=== PATIENT | male | born 1975 | race Caucasian/White ===

== ENCOUNTER → 2020-04-21 15:06 | Outpatient (CLI) | payer BC, SELFPAY ==
[2020-04-23 10:30] LABS: Covid-19 Nasal PCR Sendout P&C Positive
== END ==
PROVIDERS: PCP Family Medicine; Visit Provider Family Medicine
DX: Z20.828 Contact with and (suspected) exposure to other viral communicable diseases (principal); U07.1 COVID-19
CPT/HCPCS: U0004

== ENCOUNTER → 2020-05-01 15:40 | Outpatient (CLI) | payer BC, SELFPAY | PROVIDERS: PCP Family Medicine; Visit Provider Nurse Practitioner Family | DX: U07.1 COVID-19 (principal) | CPT/HCPCS: U0003 ==

== ENCOUNTER 2020-09-06 14:30 | Emergency (ER) | payer BC, SELFPAY ==
[2020-09-06 15:05] VITALS: BP 134/97; PULSE 100; RESP 18; TEMP 37.1; O2SAT 98; BMI 25.1
[2020-09-06 15:38] LABS: UTC Influenza A Antigen Negative (Negative); UTC Influenza B Antigen Negative (Negative); UTC Strep Screen (Rapid) Negative (Negative)
--- NOTE | 2020-09-06 15:49 | HMH.EDUTC ---
[facility] [place] Impression: Viral syndrome Disposition: Home, Self-Care Condition on Discharge: Good Instructions: DI for Viral Upper Respiratory Infection -- Adult, DI for Viral Syndrome Additional Instructions: *Monitor Temp, Over the counter Motrin or Tylenol as directed/as needed Tylenol every 4 hours and Motrin every 6 hours (as long as your family doctor has told you that you can take it) for fever or pain. and straight to ER if unable to lower temp less than 101.0 after medication given *Warm salt water gargles may help to soothe the throat *Throat Lozenges *Warm fluids like tea with honey may help to soothe the throat *Sleep elevated *Humidifier/Vaporizer *Flonase 2 sprays in each nostril daily but be aware that it may take 2-3 days before you notice improvement Your throat swab was sent for culture. Those results are typically sent to your primary care. Be sure to follow up in 2-3 days with your family doctor/primary care physician if no improvement so they can review those result and treat if necessary. If you don?t have a primary care doctor, I recommend you get one but in the mean time, you will have to return to a walk in clinic Follow up IMMEDIATELY for new or worsening symptoms or no Noticeable improvement over the next 48-72 hours. 911 for difficulty breathing or swallowing You were tested for today for COVID19 your test result should be back in the next 24-48 hours, you may call to the [facility] to see if your test results are back in the next 48 hours [phone] [facility] hours are 9am-9pm You was given a handout with instructions for Self Quarantine and Self isolation for while you wait on test results and what to do if they are positive If you are positive the Health Dept will be contacting you also Prescriptions: Fluticasone Propionate [Flonase 50mcg nasal spray 16gm] 1 spr NS DAILY #1 bottle Transmission Status: Pending to [facility] # Benzonatate [Tessalon Perle 100mg Cap*] 100 mg PO TID PRN #15 cap PRN Reason: Cough Transmission Status: Pending to [facility] # Referrals: Yovany Zamora MD [Primary Care Provider] - As needed Forms: Work/School Release Time of Disposition: 15:59 Medical Decision Making - Tony Inquiry Pt receiving controlled substance: No Tony was queried for this patient: No Vital Signs: 09/06/20 15:05 Temperature 98.8 F Temperature Source Oral Pulse Rate [Left Brachial] 100 H Respiratory Rate 18 Blood Pressure [Left Arm] 134/97 H Blood Pressure Mean [Left Arm] 109 Blood Pressure Source [Left Arm] Automatic Cuff Blood Pressure Position [Left Arm] Sitting 02 Sat by Pulse Oximetry 98 Oxygen Delivery Method Room Air - Lab Data Lab results reviewed: Yes: I reviewed the patient's lab results. Lab Results 09/06/20 15:22: Influenza Type A Ag Negative, Influenza Type B Ag Negative 09/06/20 15:22: Strep Scn Rapid Clinic Negative Orders (Tests/Meds): ORDERS Category Date Time Status Covid-19 Nasal PCR ([facility]) Routine Lab 09/06/20 15:40 Received Strep Screen Confirmation Stat Micro 09/06/20 15:22 Received [facility] UTC HPI - General Stated complaint: possoble flu Time Seen by Provider: 09/06/20 15:49 Mode of Arrival: Ambulatory Source of Information: Patient Limitations: No Limitations Description of Symptoms (Recalled from Triage Doc. by RN): PATIENT C/O SORE THROAT, CONGESTION, BODY ACHES, COUGH, AND FEVER SINCE MONDAY HEENT Symptoms (Recalled from RN notes): Yes Resp Symptoms (Recalled from RN notes): Yes Skin Symptoms (Recalled from RN notes): No MS Symptoms (Recalled from RN notes): No Functional Status (Recalled from RN notes): WNL - History of Present Illness Provider Complaint: Patient states that he started feeling bad on Monday with sore throat and body aches States that since then he feels like he has the flu States that he started having fever, chills, feeling achy all over and cough State that he is not sure if he has
[2020-09-06 16:02] VITALS: BP 134/97; PULSE 100; RESP 18; TEMP 37.1; O2SAT 98
== END 2020-09-06 16:04 | disposition home or self-care (01) ==
PROVIDERS: Emergency Provider Nurse Practitioner; PCP Family Medicine
DX: B34.9 Viral infection, unspecified (principal); Z20.822 Contact with and (suspected) exposure to COVID-19
CPT/HCPCS: 87804; 87880; 99202; G0463; U0003

== ENCOUNTER 2020-10-11 12:43 | Emergency (ER) | payer BC, SELFPAY ==
[2020-10-11 12:48] VITALS: BP 155/101; PULSE 86; RESP 16; TEMP 37.3; O2SAT 99; BMI 24.7
--- NOTE | 2020-10-11 12:49 | XR_ITS ---
PROCEDURE INFORMATION: Exam: XR Right Foot Exam date and time: 10/11/2020 12:49 PM Age: 45 years old Clinical indication: Injury or trauma; Blunt trauma; Injury details: Patient stepped into a hole while walking, right lateral foot pain. TECHNIQUE: Imaging protocol: XR Right foot. Views: 3 or more views. COMPARISON: No relevant prior studies available. FINDINGS: Bones/joints: No acute bony injury in the visualized right foot. Anatomic alignment. Soft tissues: Multiple well-circumscribed ovoid radiopaque densities about the lateral aspect of the tarsus. IMPRESSION: Multiple well-circumscribed ovoid radiopaque densities about the lateral aspect of the tarsus.
--- NOTE | 2020-10-11 12:51 | XR_ITS ---
PROCEDURE INFORMATION: Exam: XR Right Ankle Exam date and time: 10/11/2020 12:51 PM Age: 45 years old Clinical indication: Injury or trauma; Other: Patient stepped into a hole while walking. ; Blunt trauma; Injury details: Patient stepped into a hole while walking, right lateral ankle pain. TECHNIQUE: Imaging protocol: XR Right ankle. Views: 3 or more views. COMPARISON: No relevant prior studies available. FINDINGS: Bones/joints: No acute bony injury or malalignment in the right ankle mortise. Soft tissues: No significant soft tissue swelling. Well-circumscribed radiopaque densities in the soft tissues lateral to the tarsus. IMPRESSION: No acute bony injury or malalignment in the right ankle mortise.
--- NOTE | 2020-10-11 13:15 | HMH.EDUTC ---
[facility] – [place], [place] Disposition Clinical Impression: Right ankle sprain Qualifiers: Encounter type: initial encounter Involved ligament of ankle: unspecified ligament Qualified Code(s): S93.401A - Sprain of unspecified ligament of right ankle, initial encounter Disposition: Home, Self-Care Condition on Discharge: Good Instructions: DI for Ankle Sprain Additional Instructions: Weightbearing as tolerated rest Ice with cold pack for 20 minutes remove may repeat for comfort every hour leave spint/walking boot Elevate with ankle above your heart as much as possible to help reduce swelling and therefore pain Ibuprofen every 6 hours as needed for pain or inflammation. If needs something more you can take Tylenol every 4 hours as needed as long as her primary care has told he was okayed for you to take both. If improving any do not need to follow-up you can bring begin exercising 2-3 weeks after injury. Follow-up immediately if new or worsening symptoms or no noticeable improvement over the next 3-[address] yan office in am for appointment Referrals: Yovany Zamora MD [Primary Care Provider] - Dorothy Yan DPM [Staff Physician] - Forms: Work/School Release Time of Disposition: 13:44 Medical Decision Making - Tony Inquiry Pt receiving controlled substance: No Vital Signs: 10/11/20 12:48 Temperature 99.1 F Temperature Source Oral Pulse Rate [Right] 86 Respiratory Rate 16 Blood Pressure [Right Arm] 155/101 H Blood Pressure Mean [Right Arm] 119 02 Sat by Pulse Oximetry 99 Orders (Tests/Meds): ORDERS Category Date Time Status Ankle XR -Right minimum 3 Views [XR ankle RT min 3V] Exams 10/11/20 12:51 Taken Stat Foot XR right minimum 3 views [XR foot RT min 3V] Stat Exams 10/11/20 12:49 Taken [facility] – [place], [place] HPI - General Chief complaint: Urgent Treatment Center Stated complaint: ao rt foot pain 10/11 Time Seen by Provider: 10/11/20 13:15 Mode of Arrival: Ambulatory Source of Information: Patient Limitations: No Limitations Description of Symptoms (Recalled from Triage Doc. by RN): pt tripped in a hole this am and is now having R foot and ankle pain. pain is 9/10 and throbbing. HEENT Symptoms (Recalled from RN notes): No Resp Symptoms (Recalled from RN notes): No Skin Symptoms (Recalled from RN notes): No MS Symptoms (Recalled from RN notes): Yes (L outer foot pain and ankle) Functional Status (Recalled from RN notes): na - History of Present Illness Provider Complaint: 45 yr old male presnts for rt ankle and foot pain.pt tripped in a hole this am and is now having R foot and ankle pain and states he felt a pop. pain is 9/10 and throbbing. - Related Data Home Medications Medication Instructions Recorded Confirmed lisinopriL [Lisinopril 10mg Tab] 10 mg PO DAILY 05/26/19 05/26/19 Previous Rx's Medication Instructions Recorded Benzonatate [Tessalon Perle 100mg 100 mg PO TID PRN #15 cap 09/06/20 Cap*] Fluticasone Propionate [Flonase 1 spr NS DAILY #1 bottle 09/06/20 50mcg nasal spray 16gm] Allergies Allergy/AdvReac Type Severity Reaction Status Date / Time No Known Allergies Allergy Verified 09/06/20 15:27 - Worker's Comp Is this a Worker's Comp case?: No [facility] History - Hepatitis A Screen Drug use history?: No High risk sexual behaviors?: No History of sexually transmitted infection?: No Currently employed?: No Childcare worker?: No Do you have indoor plumbing?: Yes Do you have electricity?: Yes Attestation statement:: This patient has been screened for Hepatitis A risk factors. I have reviewed the patient's past medical history: Yes - Social History Smoking Status: Never smoker Tobacco Type: smokeless tobacco # Packs/Day (cigarettes): 0 Alcohol Intake: never Occupational Status: other ROS Obtained: Yes Systems reviewed as appropriate & no additional complaints - Constitutional Constitutional: Reports system reviewed and no additional complaints, except as Emmy presley fe
[2020-10-11 13:52] VITALS: BP 000/00; PULSE 89; RESP 16; TEMP 37.2
== END 2020-10-11 13:54 | disposition home or self-care (01) ==
PROVIDERS: Emergency Provider Nurse Practitioner Family; PCP Family Medicine
DX: S93.401A Sprain of unspecified ligament of right ankle, initial encounter (principal); W17.2XXA Fall into hole, initial encounter; Y92.89 Other specified places as the place of occurrence of the external cause; I10 Essential (primary) hypertension
CPT/HCPCS: 29515; 73610; 73630; 99202; G0463

== ENCOUNTER 2020-11-05 13:30 | Outpatient (RCR) | payer BC, SELFPAY | END 2020-11-05 13:35 | disposition home or self-care (01) | LOC: PT 13:30 | PROVIDERS: PCP Family Medicine; Visit Provider Orthopaedic Surgery | DX: S93.401A Sprain of unspecified ligament of right ankle, initial encounter (principal); M79.671 Pain in right foot | CPT/HCPCS: 97010; 97014; 97110; 97140; 97163; G0283 ==

== ENCOUNTER 2021-01-28 17:30 | Outpatient (RCR) | payer BC, SELFPAY | END 2021-01-28 17:35 | disposition home or self-care (01) | LOC: PT 17:30 | PROVIDERS: Visit Provider Podiatrist Foot & Ankle Surgery | DX: M76.71 Peroneal tendinitis, right leg (principal) | CPT/HCPCS: 97014; 97033; 97110; 97140; 97163; 97760; G0283 ==

== ENCOUNTER 2021-01-30 10:35 | Emergency (ER) | payer BC, SELFPAY ==
[2021-01-30 10:44] VITALS: BP 114/90; PULSE 104; RESP 16; TEMP 36.9; O2SAT 98; BMI 26.1
--- NOTE | 2021-01-30 10:59 | HMH.EDUTC ---
[facility] [place] Clinical Impression: Exposure to COVID-19 virus Disposition: Home, Self-Care Condition on Discharge: Good Instructions: Preventing the Spread of Coronavirus Discharge Instructions Additional Instructions: Drink plenty of fluids. Take tylenol for pain or fever. Return if you begin to have difficulty breathing. Follow up with your regular doctor. GO TO THE ER FOR ANY WORSENING SYMPTOMS Quarantine until you know the results of your covid-19 test. If it is positive, the health department should call you and give you further instructions about your length of Quarantine and other things. Notify your school or workplace of your results and follow their instructions regarding return to work/school. Referrals: Yovany Zamora MD [Primary Care Provider] - Time of Disposition: 11:09 Medical Decision Making - Medical Records Medical records reviewed: No: I reviewed the patient's medical records. - Tony Inquiry Pt receiving controlled substance: No Vital Signs: 01/30/21 10:44 01/30/21 11:12 Temperature 98.4 F 98.4 F Temperature Source Oral Pulse Rate 104 H Pulse Rate [Left] 104 H Respiratory Rate 16 16 Blood Pressure 114/90 Blood Pressure [Right Arm] 114/90 Blood Pressure Mean [Right Arm] 98 02 Sat by Pulse Oximetry 98 [facility] [place] HPI - General Stated complaint: covid test, exposure Time Seen by Provider: 01/30/21 11:06 Mode of Arrival: Ambulatory Source of Information: Patient Limitations: No Limitations Description of Symptoms (Recalled from Triage Doc. by RN): EXPOSED TO COVID 01/25. ASYMPTOMATIC. HEENT Symptoms (Recalled from RN notes): No Resp Symptoms (Recalled from RN notes): No Skin Symptoms (Recalled from RN notes): No MS Symptoms (Recalled from RN notes): No Functional Status (Recalled from RN notes): NA - History of Present Illness Provider Complaint: He was exposed to covid-19 last monday by being around his daughter when she had it. He has not been vaccinated. He denies any symptoms or complaints. He needs a test so he can go back to work. - Related Data Home Medications Medication Instructions Recorded Confirmed lisinopriL [Lisinopril 10mg Tab] 10 mg PO DAILY 05/26/19 05/26/19 Previous Rx's Medication Instructions Recorded Benzonatate [Tessalon Perle 100mg 100 mg PO TID PRN #15 cap 09/06/20 Cap*] Fluticasone Propionate [Flonase 1 spr NS DAILY #1 bottle 09/06/20 50mcg nasal spray 16gm] Allergies Allergy/AdvReac Type Severity Reaction Status Date / Time No Known Allergies Allergy Verified 09/06/20 15:27 - Worker's Comp Is this a Worker's Comp case?: No [facility] History - Hepatitis A Screen Drug use history?: No High risk sexual behaviors?: No History of sexually transmitted infection?: No Currently employed?: No Childcare worker?: No Do you have indoor plumbing?: Yes Do you have electricity?: Yes Attestation statement:: This patient has been screened for Hepatitis A risk factors. I have reviewed the patient's past medical history: Yes - Social History Smoking Status: Never smoker Tobacco Type: smokeless tobacco # Packs/Day (cigarettes): 0 Alcohol Intake: never Occupational Status: other ROS Obtained: Yes All systems reviewed & no additional complaints - Constitutional Constitutional: Denies chills, Denies fever(s), Denies poor appetite, Denies malaise - Eyes Eyes: Denies eye discharge, Denies itchy eyes - ENT Ears, Nose, Mouth, and Throat: Denies dizziness, Denies otalgia, Denies sore throat - Cardiovascular Cardiovascular: Denies chest pain - Respiratory Respiratory: Denies chest congestion, Denies cough, Denies dyspnea, Denies stridor, Denies wheezing - Gastrointestinal Gastrointestingal: Denies: abdominal pain, diarrhea, nausea, vomiting - Integumentary/Breasts Skin/Breast: Denies rash Physical Exam - General General appearance: alert, in no apparent distress - Head Head exam: atraumatic,
[2021-01-30 11:12] VITALS: BP 114/90; PULSE 104; RESP 16; TEMP 36.9
== END 2021-01-30 11:14 | disposition home or self-care (01) ==
PROVIDERS: Emergency Provider Nurse Practitioner Family; PCP Family Medicine
DX: Z20.822 Contact with and (suspected) exposure to COVID-19 (principal)
CPT/HCPCS: 99202; C9803; G0463; U0003; U0005

== ENCOUNTER 2021-05-25 14:10 | Emergency (ER) | payer BC, SELFPAY ==
[2021-05-25 14:26] VITALS: BP 161/109; PULSE 98; RESP 18; TEMP 37.3; O2SAT 97; BMI 26.9
--- NOTE | 2021-05-25 14:28 | ECG_ITS ---
APPROVED REPORT Exam: Resting ECG HR:85 bpm ECG Measurements Heart Rate 85 AXES CA 136 P 36 QRSd 91 QRS 59 QT 338 T 8 QTc 380 Conclusion SINUS RHYTHM NONSPECIFIC T-WAVE ABNORMALITY BORDERLINE ECG UNCONFIRMED REPORT Electronically signed by : Contreras Perez MD 05/25/2021 16:24:31
--- NOTE | 2021-05-25 14:32 | XR_ITS ---
FINAL REPORT CLINICAL HISTORY: chest tightness, SOA, COUGH, POSITIVE FOR COVID AT HOME TEST COMPARISON: October 13, 2017 FINDINGS: SINGLE VIEW CHEST. The heart is normal in size. The mediastinum is unremarkable. The lungs are clear. There is no pneumothorax. IMPRESSION: No active cardiopulmonary disease, stable from prior. Reviewed, Interpreted and Dictated by Luis Simmons III, MD Transcribed by Arlene Obrien Authenticated by Luis Simmons III, MD on 05/25/2021 03:46:05 PM [facility]
--- NOTE | 2021-05-25 15:01 | HMH.EDGENADL ---
ED Disposition Clinical Impression: Bronchitis, COVID-19 Disposition: Home, Self-Care Condition on Discharge: Good Instructions: DI for Acute Bronchitis, DI for COVID-19 (Suspected or Confirmed ) Additional Instructions: follow up pcp, return for worse Prescriptions: Albuterol Sulfate [Proventil-HFA 90mcg/puff Inh] 1 - 2 puffs IH Q4HP PRN #1 each PRN Reason: Shortness Of Breath Transmission Status: Pending to [facility] # Azithromycin [Zithromax 500mg Tab Tri-Eren] 500 mg PO DAILY #3 tab Transmission Status: Pending to [facility] # Referrals: Yovany Zamora MD [Primary Care Provider] - - Critical Care Critical Care Time: No Attestation: On 05/25/21, the high probability of a clinically significant, sudden or life threatening deterioration of the following system(s) required my full and direct attention, intervention and personal management. The time I documented below is in addition to time spent performing reported procedures but includes the following listed in this critical care notation. Medical Decision Making - Medical Records Medical records reviewed: Yes: I reviewed the patient's medical records. - Tony Inquiry Pt receiving controlled substance: No Vital Signs: 05/25/21 14:26 Temperature 99.2 F Temperature Source Oral Pulse Rate [Left Radial] 98 H Respiratory Rate 18 Blood Pressure [Right Arm] 161/109 H Blood Pressure Mean [Right Arm] 126 Blood Pressure Source [Right Arm] Automatic Cuff Blood Pressure Position [Right Arm] Sitting 02 Sat by Pulse Oximetry 97 Oxygen Delivery Method Room Air Orders (Tests/Meds): ORDERS Category Date Time Status XR chest portable Stat Exams 05/25/21 14:32 Taken Basic Metabolic Panel Stat Lab 05/25/21 14:32 Ordered Complete Blood Count Auto Diff Stat Lab 05/25/21 14:32 Ordered Troponin I Q3H Lab 05/25/21 17:45 Ordered Troponin I Q3H Lab 05/25/21 20:45 Ordered Troponin I Stat Lab 05/25/21 14:32 Ordered Medical Decision Narrative: ekg by wi nsr, qrs nml, non spec t changes discussed cardiac labs, declined, r?b/a explained General Adult HPI - General Chief complaint: Upper Respiratory Infection Stated complaint: covid exposed, sore throat, cough, h/a, congestion Time Seen by Provider: 05/25/21 15:01 Mode of Arrival: Ambulatory Limitations: No Limitations Description of Symptoms (Recalled from ER Triage Doc. by RN): c/o chest tightness and burning t/o his chest all day. 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) Associated symptoms: denies other symptoms - Related Data Home Medications Medication Instructions Recorded Confirmed lisinopriL [Lisinopril 10mg Tab] 10 mg PO DAILY 05/26/19 05/26/19 Previous Rx's Medication Instructions Recorded Benzonatate [Tessalon Perle 100mg 100 mg PO TID PRN #15 cap 09/06/20 Cap*] Fluticasone Propionate [Flonase 1 spr NS DAILY #1 bottle 09/06/20 50mcg nasal spray 16gm] Albuterol Sulfate [Proventil-HFA 1 - 2 puffs IH Q4HP PRN #1 each 05/25/21 90mcg/puff Inh] Azithromycin [Zithromax 500mg Tab 500 mg PO DAILY #3 tab 05/25/21 Tri-Eren] Allergies Allergy/AdvReac Type Severity Reaction Status Date / Time No Known Allergies Allergy Verified 09/06/20 15:27 [facility] History - Hepatitis A Screen Drug use history?: No High risk sexual behaviors?: No History of sexually transmitted infection?: No Currently employed?: No Childcare worker?: No Do you have indoor plumbing?: Yes Do you have electricity?: Yes Attestation statement:: This patient has been screened for Hepatitis A risk factors. - Social History Smoking Status: Never smoker Tobacco Type: smokeless tobacco # Packs/Day (cig
[2021-05-25 15:11] VITALS: BP 145/95; PULSE 86
--- NOTE | 2021-05-25 15:24 | PC.NURSE ---
Pt refused labs to be drawn.Pt states he just wants his lungs to be checked to see if he had anything go into them.
[2021-05-25 15:57] VITALS: BP 154/100; PULSE 83; RESP 20; TEMP 37.3; O2SAT 98
== END 2021-05-25 15:59 | disposition home or self-care (01) ==
PROVIDERS: Emergency Provider Emergency Medicine; PCP Family Medicine
DX: J40 Bronchitis, not specified as acute or chronic (principal); U07.1 COVID-19
CPT/HCPCS: 71045; 93005; 99282

== ENCOUNTER 2022-04-25 09:47 | Emergency (ER) | payer OTHER, SELFPAY ==
[2022-04-25 10:40] VITALS: BP 135/85; PULSE 80; RESP 19; TEMP 37.1; O2SAT 98; BMI 23.8
[2022-04-25 11:08] LABS: UTC Strep Screen (Rapid) Negative (Negative)
--- NOTE | 2022-04-25 11:08 | EXP.UTC ---
Discharge Plan Disposition Patient Disposition: Home, Self-Care Condition: Good Prescriptions Prescriptions: New azithromycin [Zithromax Z-Eren] 250 mg tablet See Rx Instructions .ROUTE .COMPLEX 5 Days Qty: 6 0RF Rx Instructions: For 250 mg dose pack: take 500 mg today (day 1), then 250 mg for 4 days (days 2-5) No Action lisinopril 10 tablet 10 mg PO DAILY benzonatate 100 MG capsule 100 mg PO TID PRN (Reason: Cough) Qty: 15 0RF fluticasone propionate 120 SPR/BOT bottle 1 spr NS DAILY Qty: 1 0RF Rx Instructions: each nostril daily albuterol sulfate 200 PUFFS HFA aerosol inhaler 1 - 2 puffs IH Q4HP PRN (Reason: Shortness Of Breath) Qty: 1 0RF azithromycin 500 MG tablet 500 mg PO DAILY Qty: 3 0RF Referrals Follow up/Referrals: Yovany Zamora MD [Primary Care Provider] - See instructions Activity Restrictions/Add. Instructions Additional Instructions/Restrictions: *Monitor Temp, Over the counter Motrin or Tylenol as directed/as needed Tylenol every 4 hours and Motrin every 6 hours (as long as your family doctor has told you that you can take it) for fever or pain. and straight to ER if unable to lower temp less than 101.0 after medication given *Warm salt water gargles may help to soothe the throat *Throat Lozenges? *Warm fluids like tea with honey may help to soothe the throat? *Sleep elevated *Humidifier/Vaporizer Your throat swab was sent for culture. Those results are typically sent to your primary care. Be sure to follow up in 2-3 days with your family doctor/primary care physician if no improvement so they can review those result and treat if necessary. If you don?t have a primary care doctor, I recommend you get one but in the mean time, you will have to return to a walk in clinic Follow up IMMEDIATELY for new or worsening symptoms or no Noticeable improvement over the next 48-72 hours. 911 for difficulty breathing or swallowing Clinical Impressions Clinical Impression: Pharyngitis Stand Alone Forms Stand Alone Forms: Work/School Release Instructions Patient Instructions: Sore Throat, Strep Throat Discharge ED Provider: Codi Bansal [facility] [place] HPI General Stated complaint: Sore throat, headache, bodyaches Mode of Arrival: Ambulatory Source of Information: Patient Limitations: No Limitations Time Seen by Provider: 04/25/22 11:09 Description of Symptoms (Recalled from Triage Doc. by RN): PATIENT C/O SORE THROAT, PRESSURE IN HEAD, COUGH AND BODY ACHES SINCE YESTERDAY HEENT Symptoms (Recalled from RN notes): Yes Resp Symptoms (Recalled from RN notes): Yes Skin Symptoms (Recalled from RN notes): No MS Symptoms (Recalled from RN notes): No Functional Status (Recalled from RN notes): WNL History of Present Illness Provider Complaint: Patient states angie everyone in his house has strep throat and feels like it has it now too States that his throat is raw and hurts when he swallows and having pressure in his head behind his eyes States that it has continued to get worse since yesterday Related Data Home Medications Medication Instructions Recorded Confirmed lisinopril 10 mg tablet 10 mg PO DAILY Hypertension 05/26/19 05/26/19 Previous Rx's Medication Instructions Recorded benzonatate 100 mg capsule 100 mg PO TID PRN Cough #15 caps 09/06/20 fluticasone propionate 50 1 spr NS DAILY ##1 09/06/20 mcg/actuation nasal spray,suspension albuterol sulfate 90 mcg/actuation 1 - 2 puffs IH Q4HP PRN Shortness 05/25/21 aerosol inhaler Of Breath #1 ea azithromycin 500 mg tablet 500 mg PO DAILY #3 tabs 05/25/21 azithromycin 250 mg tablet See Rx Instructions PO .COMPLEX 5 04/25/22 (Zithromax Z-Eren) days #6 tabs Allergies Allergy/AdvReac Type Severity Reaction Status Date / Time No Known Allergies Allergy Verified 09/06/20 15:27 Worker's Comp Is this a Worker's Comp case?: No [facility] Disclaimer: The information contained in t
[2022-04-25 11:09] LABS: UTC Influenza A Antigen Negative (Negative); UTC Influenza B Antigen Negative (Negative)
[2022-04-25 11:24] VITALS: BP 135/85; PULSE 80; RESP 19; TEMP 37.1; O2SAT 98
== END 2022-04-25 11:33 | disposition home or self-care (01) ==
PROVIDERS: Emergency Provider Nurse Practitioner; PCP Family Medicine
DX: J02.9 Acute pharyngitis, unspecified (principal)
CPT/HCPCS: 87804; 87880; 99212; 99213; G0463

== ENCOUNTER → 2022-09-15 19:23 | Outpatient (CLI) | payer OTHER, SELFPAY | PROVIDERS: PCP Student in an Organized Health Care Education/Training Program; Visit Provider Student in an Organized Health Care Education/Training Program | DX: J02.9 Acute pharyngitis, unspecified (principal) ==

== ENCOUNTER 2025-04-22 10:52 | Outpatient (CLI) | payer OTHER, SELFPAY ==
--- NOTE | 2025-04-22 10:57 | XR_ITS ---
FINAL REPORT CLINICAL HISTORY: LOW BACK PAIN FINDINGS: AP, lateral, and oblique views of the lumbar spine were obtained. There is no acute fracture or acute malalignment. Vertebral body height is preserved. There is mild degenerative disc disease. No acute paraspinal abnormality is identified. IMPRESSION: No acute osseous abnormality of the lumbar spine. Reviewed, Interpreted and Dictated by Zabrina Ortiz MD Transcribed by Mariyln Gillespie Authenticated and [facility]
== END 2025-04-22 23:59 | disposition home or self-care (01) ==
LOC: RAD 10:53
PROVIDERS: PCP Nurse Practitioner Family; Visit Provider Nurse Practitioner Family
DX: M51.360 Other intervertebral disc degeneration, lumbar region with discogenic back pain only (principal)
CPT/HCPCS: 72110